=== PATIENT | female | born 1975 | race Caucasian/White ===

== ENCOUNTER 2017-09-17 19:21 | Emergency (ER) | payer OTHER ==
[2017-09-17] MEDS ORDERED: ONDANSETRON 4 MG/2 ML VIAL IVP ONE (19:42)
[2017-09-17] MEDS ORDERED: NS 1,000 ML IV ONE (19:42)
[2017-09-17] MEDS ORDERED: TRANEXAMIC ACID 1,000 MG/10 ML VIAL ONE (20:03)
[2017-09-17] MEDS ORDERED: IOPAMIDOL (ISOVUE-300) 100 ML BTL ONE (20:26)
[2017-09-17 21:54] LABS: INR 0.98 (0.83-1.16); PROTIME(PATIENT) 13.2 SEC (12.0-15.0)
[2017-09-17] MEDS ORDERED: KETOROLAC 30 MG/1 ML SDV IVP ONE (22:28)
--- NOTE | 2017-09-18 00:01 | EDPHY ---
H & P Stated Complaint: c/o rlq abd pain since noon with nausea Time Seen by Provider: 09/17/17 19:30 HPI/ROS: 42-year-old female presents complaining of abdominal pain that began at noon today. She states she often has abdominal pain prior to bowel movements that is probably relieved after having a bowel movement and that occurred today however the pain did not improved despite having a bowel movement. Some nausea, no vomiting. No fevers no chills. Patient with a prior history of section. Review of systems As per HPI General no fever no chills no weakness HEENT no eye pain no eye discharge. No eye redness, no sore throat Respiratory no cough, no shortness of breath Cardiac no chest pain, no peripheral edema GI positive abdominal pain, no diarrhea, no constipation, no nausea, no vomiting no flank pain, no hematuria, no dysuria Musculoskeletal no myalgias, no joint pain Heme no easy bruising, no easy bleeding Endo no polyuria, no polydipsia Skin no rashes, no pruritus Neuro no syncope, no dizziness, no headaches Psych is no suicidal ideation, no homicidal ideation Source: Patient, Family Exam Limitations: No limitations - Personal History LMP (Females 10-55): 1-7 Days Ago Current Tetanus Diphtheria and Acellular Pertussis (TDAP): Yes Tetanus Vaccine Date: within 10 years - Medical/Surgical History Hx Asthma: No Hx Chronic Respiratory Disease: No Hx Diabetes: No Hx Cardiac Disease: No Hx Renal Disease: No Hx Cirrhosis: No Hx Alcoholism: No Hx HIV/AIDS: No Hx Splenectomy or Spleen Trauma: No Other PMH: c section - Family History Significant Family History: Cancer (Sister recently of breast cancer) - Social History Smoking Status: Never smoked Alcohol Use: None Drug Use: None - Physical Exam Exam: 42-year-old female alert and oriented moderate distress secondary to abdominal pain, nontoxic appearance, afebrile HEENT atraumatic normocephalic, extraocular muscles intact, anicteric Oropharynx negative for erythema negative exudate, tolerating her own secretions Neck supple no meningismus Lungs clear to auscultation bilaterally Heart regular rate and rhythm without murmur rub or gallop Abdomen nondistended normoactive bowel sounds, soft, epigastric tenderness Right lower quadrant tenderness positive guarding Back no CVA tenderness, no step-offs, no spinal tenderness Extremities no cyanosis clubbing or edema Neuro alert and oriented, no focal deficits Constitutional: Initial Vital Signs Temperature (C) 37.4 C 09/17/17 19:34 Heart Rate 78 09/17/17 19:34 Respiratory Rate 15 09/17/17 19:34 Blood Pressure 124/80 H 09/17/17 19:34 O2 Sat (%) 96 09/17/17 19:34 O2 Delivery Mode Room Air Allergies/Adverse Reactions: No Known Allergies Allergy (Verified 06/30/15 07:25) Home Medications: Medication Instructions Recorded No Known Home Meds 06/30/15 Medical Decision Making - Diagnostics Imaging Results: Imaging Impressions Abdomen CT 09/17/17 20:17 Impression: 1. Oval low attenuation mass with an epicenter in the right adnexa is probably of ovarian origin. 2. The appendix is not visualized. 3. Fluid is seen in the dependent portion of the pelvis. 4. See above report for additional findings.. Results called and discussed with Roxi Doe MD on 09/17/2017 at 20:55. Pelvic/Renal Ultrasound 09/17/17 20:57 Impression: Oval cystic structure associated with the right ovary or occurring in the right adnexa which has been incompletely evaluated sonographically. The patient can be reevaluated in the morning with repeat study performed at no additional charge to the patient. Results called and discussed with Roxi Doe MD on 09/17/2017 at 23: 40. ED Course/Re-evaluation: Patient seen and evaluated for abdominal pain IV established IV normal saline started CBC within normal limits CMP within normal Lipase normal Lactate negative CT abdomen to rule out appendicitis No evidence of appendicitis, however right adnexal mass noted Pelvic ultrasound ordered to elucidate right adnexal mass Ultrasound negative for torsion however is a suboptimal study Impression Right adnexal mass Plan Follow-up with your logistics and planning manager as soon as possible Return to [facility] Radiology Department after 8:00 a.m. On WednesdaySeptember 18 for a complete pelvic ultrasound. Differential Diagnosis: Differential diagnosis considered but not limited to: Appendicitis, pancreatitis, cholecystitis, ovarian torsion, hemorrhagic ovarian cyst, tubo-ovarian abscess - Data Points Laboratory Results: 09/17/17 09/17/17 09/17/17 20:26 20:00 19:55 POC Hgb 11.6 gm/dL L gm/dL (12.6-16.3) POC Hct 34 % L % (38-47) PT INR APTT POC Sodium 137 mEq/L mEq/L 139 mEq/L mEq/L (135-145) (135-145) POC Potassium 3.7 mEq/L mEq/L 3.9 mEq/L mEq/L (3.3-5.0) (3.3-5.0) POC Chloride 103 mEq/L mEq/L 102.0 mEq/L mEq/L (97-110) (97-110) POC Total CO2 28 mEq/L mEq/L (22-31) POC BUN 12 mg/dL mg/dL 11 mg/dL mg/dL (7-23) (7-23) POC Creatinine 0.7 mg/dL mg/dL 1.0 mg/dL mg/dL (0.6-1.0) (0.6-1.0) POC Glucose 102 mg/dL H mg/dL 106 mg/dL H mg/dL (70-100) (70-100) POC Lactic Acid Reynold 0.9 mmol/L mmol/L (0.7-2.1) POC Calcium 9.0 mg/dL mg/dL (8.5-10.4) POC Total Bilirubin 1.7 mg/dL H mg/dL (0.1-1.4) POC AST 23 IU/L IU/L (14-46) POC ALT 16 IU/L IU/L (9-52) POC Alk Phosphatase 61 IU/L IU/L (38-126) POC Total Protein 7.2 g/dL g/dL (6.3-8.2) POC Albumin 3.9 g/dL g/dL (3.5-5.0) Lipase 09/17/17 09/17/17 19:50 19:50 POC Hgb POC Hct PT 13.2 SEC SEC (12.0-15.0) INR 0.98 (0.83-1.16) APTT 26.3 SEC SEC (23.0-38.0) POC Sodium POC Potassium POC Chloride POC Total CO2 POC BUN POC Creatinine POC Glucose POC Lactic Acid Reynold POC Calcium POC Total Bilirubin POC AST POC ALT POC Alk Phosphatase POC Total Protein POC Albumin Lipase 46 IU/L IU/L (23-300) Medications Given: Discontinued Medications Sodium Chloride (Ns) 1,000 mls @ 0 mls/hr IV ONCE ONE PRN Reason: Wide Open Stop: 09/17/17 19:43 Last Admin: 09/17/17 20:06 Dose: 1,000 mls Ketorolac Tromethamine (Toradol) 30 mg IVP EDNOW ONE Stop: 09/17/17 22:29 Last Admin: 09/17/17 22:31 Dose: 30 mg Morphine Sulfate (Morphine) 4 mg IVP EDNOW ONE Stop: 09/17/17 19:43 Last Admin: 09/17/17 20:07 Dose: 2 mg Ondansetron HCl (Zofran) 4 mg IVP EDNOW ONE Stop: 09/17/17 19:43 Last Admin: 09/17/17 20:06 Dose: 4 mg Point of Care Test Results: CBC CBC Collection Date 09/17/17 CBC Collection Time 19:50 WBC 7.9 RBC 4.06 PLT 256 Neut # 6.1 Neut 77.9 LYMPH # 1.4 LYMPH 17.6 Other WBC # 0.4 Other WBC 4.5 Chemistry 09/17/17 09/17/17 20:26 20:00 POC Sodium 137 mEq/L mEq/L 139 mEq/L mEq/L (135-145) (135-145) POC Potassium 3.7 mEq/L mEq/L 3.9 mEq/L mEq/L (3.3-5.0) (3.3-5.0) POC Chloride 103 mEq/L mEq/L 102.0 mEq/L mEq/L (97-110) (97-110) POC Total CO2 28 mEq/L mEq/L (22-31) POC BUN 12 mg/dL mg/dL 11 mg/dL mg/dL (7-23) (7-23) POC Creatinine 0.7 mg/dL mg/dL 1.0 mg/dL mg/dL (0.6-1.0) (0.6-1.0) POC Glucose 102 mg/dL H mg/dL 106 mg/dL H mg/dL (70-100) (70-100) POC Calcium 9.0 mg/dL mg/dL (8.5-10.4) POC Total Bilirubin 1.7 mg/dL H mg/dL (0.1-1.4) POC AST 23 IU/L IU/L (14-46) POC ALT 16 IU/L IU/L (9-52) POC Alk Phosphatase 61 IU/L IU/L (38-126) POC Total Protein 7.2 g/dL g/dL (6.3-8.2) POC Albumin 3.9 g/dL g/dL (3.5-5.0) Blood Gas/Lactic Acid-Venous 09/17/17 19:55 POC Lactic Acid Reynold 0.9 mmol/L mmol/L (0.7-2.1) ISTAT H&H 09/17/17 20:26 POC Hgb 11.6 gm/dL L gm/dL (12.6-16.3) POC Hct 34 % L % (38-47) Urine Collection Date 09/17/17 Collection Time 19:55 HCG Results Negative Urine Dip Collection Date 09/17/17 Collection Time 19:55 Specific [place] (1.002-1.030) 1.025 PH (5.0-7.5) 6.0 Leukocytes (Negative) Negative Nitrites (Negative) Negative Protein (Negative) Negative Glucose (Negative) Negative Ketones (Negative) 1+ Urobilnogen (0.2-1.0 EU) 0.2 Bilirubin (Negative) Negative Blood (Negative) 2+ Departure - Departure Disposition: Home, Routine, Self-Care Clinical Impression: Abdominal pain, Adnexal mass Condition: Good Instructions: Endometriosis (ED), Ovarian Cyst (ED), Acute Abdominal Pain (ED) Additional Instructions: Please go to [facility] to the radiology department for a complete pelvic ultrasound after 8am tomorrow , September 18. Referrals: NONE *PRIMARY CARE P,. [Primary Care Provider] - As per Instructions
[2017-09-18 00:27] VITALS: BP 116/71
== END 2017-09-18 00:12 | disposition home or self-care (01) ==
LOC: CED 19:21
DX: E27.9 Disorder of adrenal gland, unspecified (principal)
CPT/HCPCS: 74177-PO; 76856-PO; 80053-PO; 82435-PO; 82565-PO; 82947-PO; 83605-PO; 84132-PO; 84295-PO; 84520-PO; 85014-PO; 96374; J1885; J2270; J2405; Q9967

== ENCOUNTER → 2017-09-18 | Outpatient (CLI) | payer OTHER | LOC: FIMAGING 08:25 | PROVIDERS: ATTEND Emergency Medicine | DX: R10.2 Pelvic and perineal pain (principal); N83.201 Unspecified ovarian cyst, right side ==